=== PATIENT | male | born 1975 | race Caucasian/White ===

== ENCOUNTER 2023-08-15 16:32 | Emergency (ER) | payer OTHER ==
[2023-08-15 17:01] VITALS: BP 125/85; PULSE 74; RESP 16; TEMP 97.8; BMI 30.7
[2023-08-15] MEDS ORDERED: ACETAMINOPHEN 325 MG TABLET (FP) ONE (18:36)
[2023-08-15] MEDS ORDERED: LIDOCAINE 5% TOPICAL PATCH ONE (18:36)
[2023-08-15] MEDS: LIDOCAINE 5% TOPICAL PATCH TP ONE (18:39)
[2023-08-15] MEDS: ACETAMINOPHEN 325 MG TABLET (FP) PO ONE (18:39)
[2023-08-15] MEDS ORDERED: LIDOCAINE PATCH REMOVAL MC SCH (22:00)
== END 2023-08-15 19:10 | disposition home or self-care (01) ==
LOC: FER 16:32
DX: S00.12XA Contusion of left eyelid and periocular area, initial encounter (principal); M54.2 Cervicalgia; R42 Dizziness and giddiness; R51.9 Headache, unspecified; Y04.0XXA Assault by unarmed brawl or fight, initial encounter
CPT/HCPCS: 70450-TC; 70486-TC; 72125-TC; 99284-25